=== PATIENT | female | born 1985 | race Caucasian/White ===

== ENCOUNTER 2016-08-31 11:25 | Emergency (ER) | payer OTHER ==
--- NOTE | 2016-08-31 13:47 | ED NURSING NOTES ---
Clinical Report - Nurses [facility] [address] [place] [address] 08/31/2016 11:28 Patient: SALTY SNEED TRIAGE Triage time 1140. Acuity: LEVEL 5. Chief Complaint: INJURY TO LEFT HAND. Alert. No acute distress. --11:45 Merna Arreola R.N. 11:39 08/31/16. BP: 141/80 (regular adult cuff) taken on the right arm, via an automated monitor, while sitting. HR: 79. RR: 16. O2 saturation: 100%. Temp: 97.8 F (oral). Pain level now: 05/26. --11:45 Merna Arreola R.N. Weight: 56.6 kg stated. Height/Length: 61 inches Per Patient. BMI: 23.6. --11:39 Merna Arreola R.N. Medications Vitamins Oral. --11:44 Merna Arreola R.N. Advair HFA Inhalation. --11:45 Merna Arreola R.N. Allergies Dilaudid. --15:25 Yasmeen Mccollum R.N. Medication/allergy information source: the patient. --11:45 Merna Arreola R.N. History Arrived by private vehicle. Historian: patient. Accompanied by family. Primary physician (Roly). ( Pt states was outside cutting wood with a hatchet and cut her left index finger, pt did run it under water x2 and wrapped it with cling and gauze. Here for further evaluation.). This occurred just prior to arrival. She sustained a laceration from a sharp edge (Hatchet while cutting wood for a fire). No neck pain. 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 PAST MEDICAL HX: Tetanus status: up-to-date. Immunizations: up-to-date. Sexual history - sexually active. No contraception. SOCIAL HX: Never smoker. Occasional alcohol use. No drug use. ABUSE ASSESSMENT: No report of abuse. SELF HARM ASSESSMENT: A self harm assessment was performed. The patient answered "no" to the question "Do you have thoughts of harming or killing yourself?" and "Have you recently had thoughts about harming or killing others?". FALL RISK ASSESSMENT: Fall risk assessment completed. No fall risk identified. NUTRITIONAL RISK ASSESSMENT: The nutritional risk assessment revealed no deficiencies. FUNCTIONAL ASSESSMENT: Functional assessment: no impairments noted. LEARNING NEEDS ASSESSMENT: The learning needs assessment revealed no barriers. SKIN INTEGRITY ASSESSMENT: Skin integrity risk assessment completed. No skin integrity risk identified. --:45 Merna Arreola R.N. PROBLEMS: Asthma. Lumbar Strain. Myofascial Strain. Tetanus Status. Immunizations. Mood Disorder. Bronchitis. --:45 Merna Arreola R.N. ADDITIONAL SURGERIES: Appendectomy. . --:45 Merna Arreola R.N. Interventions ID band on patient. --11:45 Merna Arreola R.N. PHYSICAL ASSESSMENT Ambulatory to room. GENERAL / NEURO / PSYCH: Oriented X 4. Alert. EXTREMITIES: Capillary refill is less than 2 seconds in the extremities. Extremity pulses are within normal limits. Extremities exhibit normal ROM. Neuro-vascular status intact to the extremity. Left hand: tenderness, erythema, small and deep abrasion and 1.0 cm laceration with controlled bleeding (index finger). No foreign body or deformity. SKIN: Skin intact. Skin is warm and dry. --11:46 Merna Arreola R.N. NURSING PROGRESS NOTES The initial plan of care for this patient has been created This plan of care was discussed with the patient. Reassurance given. Two patient identifiers checked. Call light placed in reach. Side rails up x 1. Bed placed in lowest position. Brakes of bed on. --11:46 Merna Arreola R.N. 12:03 08/31/16. Wound irrigated with 500 mL sterile NS using a high-pressure irrigation system; patient tolerated procedure well. --12:03 Ubaldo Pablo 14:00. WOUND REPAIR: Wound repair performed by ENE. Assisted by one nurse. The wound is linear. Preparation: suture tray set-up with lidocaine. Wound cleansed per physician and irrigated per physician using a syringe. Procedure: wound repaired with sutures. Post-procedure: she was stable, bleeding controlled and dressing applied. Total time of assist / procedure: 15 minutes. Applied clean dressing consisting of adaptic, following the application of antibiotic ointment. Secured with tube gauze. --15:24 Yasmeen Mccollum R.N. DISPOSITION / DISCHARGE 14:15. Condition at departure: improved and stable. No learning barriers present. Discharge instructions provided and reviewed with the patient. Reviewed wound care instructions. Patient and speech pathology assistant verbalized understanding. Written instructions provided in Sami. The patient was discharged home. She left the Emergency Department ambulatory and via private vehicle. --15:22 Yasmeen Mccollum R.N. 14:15 08/31/16. BP: 128/78. HR: 72. RR: 18. O2 saturation: 100%. Temp: deferred. Pain level now: 0/10. --15:22 Yasmeen Mccollum R.N. Locked/Released at 08/31/2016 15:25 by Yasmeen Mccollum R.N.
--- NOTE | 2016-08-31 13:47 | ED NURSING NOTES ---
Clinical Report - Nurses [facility] [address] [place] [address] 08/31/2016 11:28 Patient: SALTY SNEED TRIAGE Triage time 1140. Acuity: LEVEL 5. Chief Complaint: INJURY TO LEFT HAND. Alert. No acute distress. --11:45 Merna Arreola R.N. 11:39 08/31/16. BP: 141/80 (regular adult cuff) taken on the right arm, via an automated monitor, while sitting. HR: 79. RR: 16. O2 saturation: 100%. Temp: 97.8 F (oral). Pain level now: 05/26. --11:45 Merna Arreola R.N. Weight: 56.6 kg stated. Height/Length: 61 inches Per Patient. BMI: 23.6. --11:39 Merna Arreola R.N. Medications Vitamins Oral. --11:44 Merna Arreola R.N. Advair HFA Inhalation. --11:45 Merna Arreola R.N. Allergies Dilaudid. --15:25 Yasmeen Mccollum R.N. Medication/allergy information source: the patient. --11:45 Merna Arreola R.N. History Arrived by private vehicle. Historian: patient. Accompanied by family. Primary physician (Roly). ( Pt states was outside cutting wood with a hatchet and cut her left index finger, pt did run it under water x2 and wrapped it with cling and gauze. Here for further evaluation.). This occurred just prior to arrival. She sustained a laceration from a sharp edge (Hatchet while cutting wood for a fire). No neck pain. 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 PAST MEDICAL HX: Tetanus status: up-to-date. Immunizations: up-to-date. Sexual history - sexually active. No contraception. SOCIAL HX: Never smoker. Occasional alcohol use. No drug use. ABUSE ASSESSMENT: No report of abuse. SELF HARM ASSESSMENT: A self harm assessment was performed. The patient answered "no" to the question "Do you have thoughts of harming or killing yourself?" and "Have you recently had thoughts about harming or killing others?". FALL RISK ASSESSMENT: Fall risk assessment completed. No fall risk identified. NUTRITIONAL RISK ASSESSMENT: The nutritional risk assessment revealed no deficiencies. FUNCTIONAL ASSESSMENT: Functional assessment: no impairments noted. LEARNING NEEDS ASSESSMENT: The learning needs assessment revealed no barriers. SKIN INTEGRITY ASSESSMENT: Skin integrity risk assessment completed. No skin integrity risk identified. --:45 Merna Arreola R.N. PROBLEMS: Asthma. Lumbar Strain. Myofascial Strain. Tetanus Status. Immunizations. Mood Disorder. Bronchitis. --:45 Merna Arreola R.N. ADDITIONAL SURGERIES: Appendectomy. . --:45 Merna Arreola R.N. Interventions ID band on patient. --11:45 Merna Arreola R.N. PHYSICAL ASSESSMENT Ambulatory to room. GENERAL / NEURO / PSYCH: Oriented X 4. Alert. EXTREMITIES: Capillary refill is less than 2 seconds in the extremities. Extremity pulses are within normal limits. Extremities exhibit normal ROM. Neuro-vascular status intact to the extremity. Left hand: tenderness, erythema, small and deep abrasion and 1.0 cm laceration with controlled bleeding (index finger). No foreign body or deformity. SKIN: Skin intact. Skin is warm and dry. --11:46 Merna Arreola R.N. NURSING PROGRESS NOTES The initial plan of care for this patient has been created This plan of care was discussed with the patient. Reassurance given. Two patient identifiers checked. Call light placed in reach. Side rails up x 1. Bed placed in lowest position. Brakes of bed on. --11:46 Merna Arreola R.N. 12:03 08/31/16. Wound irrigated with 500 mL sterile NS using a high-pressure irrigation system; patient tolerated procedure well. --12:03 Ubaldo Pablo 14:00. WOUND REPAIR: Wound repair performed by ENE. Assisted by one nurse. The wound is linear. Preparation: suture tray set-up with lidocaine. Wound cleansed per physician and irrigated per physician using a syringe. Procedure: wound repaired with sutures. Post-procedure: she was stable, bleeding controlled and dressing applied. Total time of assist / procedure: 15 minutes. Applied clean dressing consisting of adaptic, following the application of antibiotic ointment. Secured with tube gauze. --15:24 Yasmeen Mccollum R.N. DISPOSITION / DISCHARGE 14:15. Condition at departure: improved and stable. No learning barriers present. Discharge instructions provided and reviewed with the patient. Reviewed wound care instructions. Patient and fisher lampara net verbalized understanding. Written instructions provided in Upper Sorbian. The patient was discharged home. She left the Emergency Department ambulatory and via private vehicle. --15:22 Yasmeen Mccollum R.N. 14:15 08/31/16. BP: 128/78. HR: 72. RR: 18. O2 saturation: 100%. Temp: deferred. Pain level now: 0/10. --15:22 Yasmeen Mccollum R.N. Locked/Released at 08/31/2016 15:25 by Yasmeen Mccollum R.N.
--- NOTE | 2016-08-31 13:47 | ED ORDER SUMMARY ---
..... Patient: SALTY SNEED OrderSheet [facility] VisitID: [id number] [address] [place] [address] 30y, F Registration Date/Time: 08/31/2016 ORDER SHEET Weight: 56.6 kg (stated) Allergies: Dilaudid GENERAL ORDERS: Dress Wounds (tube gauze) (13:43 08/31/2016 Troy A.R.N.P.) (14:06 Nicolás R.N.) MEDICATION ORDERS: IV FLUIDS: ORDER SHEET NOTES: [Electronically signed by Yasmeen Mccollum R.N. (15:25 08/31/2016)] [Electronically signed by Danica DaltonR.N.PVinh (15:57 08/31/2016)] [Electronically locked/signed by Yasmeen Mccollum R.N. (15:25 08/31/2016)]
--- NOTE | 2016-08-31 13:47 | ED CLINICAL REPORT ---
Clinical Report - Physicians/Mid Levels [facility] [address] [place] [address] 08/31/2016 11:28 Patient: SALTY SNEED Time Seen: 12:10; initial patient contact. Arrived- By private vehicle. Historian- patient. HISTORY OF PRESENT ILLNESS Chief Complaint: Chief Complaint- L index finger. The injury happened just prior to arrival. The patient sustained a laceration from a sharp edge (cutting wood and got finger with the hatchet). Occurred at home. Patient is experiencing moderate pain. Patient denies injury to the head or neck. No other injury. REVIEW OF SYSTEMS The patient sustained a laceration. No swelling, tingling, numbness, weakness or suspected foreign body. All systems otherwise negative, except as recorded above. PAST HISTORY See nurses notes. PROBLEMS: Asthma. Lumbar Strain. Myofascial Strain. Tetanus Status. Immunizations. Mood Disorder. Bronchitis. --11:45 Merna Arreola R.N. ADDITIONAL SURGERIES: Appendectomy. . --11:45 Merna Arreola RVinhN. The patient's dominant hand is the right. Tetanus immunization status is up-to-date. SOCIAL HISTORY Never smoker. Occasional alcohol use. No drug use. No recent travel. Is a local resident. FAMILY HISTORY No significant family medical history. ADDITIONAL NOTES The nursing notes have been reviewed with agreement regarding the chief complaint, HPI, ROS, PMH and patient medications and allergies. PHYSICAL EXAM Vital Signs: 08/31/2016 11:39 BP: 141/80. HR: 79. RR: 16. O2 saturation: 100%. Temp: 97.8 F. Pain level now: 310. Have been reviewed as normal and appear to be correct. Appearance: Alert. Oriented X3. No acute distress. Head: Head atraumatic. Eyes: Pupils equal, round and reactive to light. Eyes normal inspection. Respiratory: No respiratory distress. Skin: Skin intact. Skin warm and dry. Normal skin color. Normal skin turgor. Extremities: Left index finger: subcutaneous 1.0 cm laceration of the volar aspect and middle phalanx- SEE LACERATION PROCEDURE NOTE #1. Neurovascular intact distally. No erythema, tenderness, swelling, abrasion or ecchymosis. No puncture wound, foreign body or deformity. No limitation in movement. No subungual hematoma or amputation present. Upper extremity otherwise negative. Extremities otherwise negative. Neuro, Vascular and Tendons: Vascular status intact. Sensation intact. Motor intact. Tendon function intact. Neuro: Oriented X 3. No motor deficit. No sensory deficit. Note: isolated injury to finger. PROGRESS AND PROCEDURES Digital Nerve Block - Finger: Per protocol, time-out completed immediately before the procedure. Digital nerve block performed on the left index finger. Volar approach utilized. Landmarks identified. Skin prepped. Total volume of 5 mL 1% Lidocaine and 0.5% Marcaine infiltrated via a single puncture using a 27-gauge needle. Patient cooperative during procedure. No complications encountered. Excellent anesthesia achieved. Laceration Repair: Location: left index finger. Length: 1 cm. Complexity: simple (local anesthesia used). Wound depth/shape- curved, subcutaneous and linear and involving fascia. Wound is clean. No contamination, foreign body or contused tissue present. No tissue loss. Distal neuro/vascular/tendon status normal. Tendon not examined. No tendon deficit or laceration or tendon injury. Anesthesia provided (digital block by Dr Linder). Prepped with Betadine. Wound explored, cleansed, irrigated and examined to the base in bloodless field with normal saline. Closure of skin: interrupted 4-0 nylon (2 sutures). Post-procedure: she is stable and there are no complications. Bleeding is controlled and neuro-vascular status is intact distal to the wound. Dressing applied. (see other notes). Tetanus immunization up-to-date. Estimated blood loss: 5 mL. Course of Care: 13:30 08/31/16. Assuming care, report given by Dr Linder, initial exam and digital block. Patient counseled in person regarding the patient's stable condition and diagnosis. Differential Diagnosis: Other possible considerations: lac, fb, skin avulsion, tendon injury. Above considerations are based on history, physical exam and reassessment. Differential diagnosis was discussed with patient. Disposition: Discharged home in good and improved condition (13:47). Condition: good and stable. CLINICAL IMPRESSION Single deep laceration to the left index finger.Treatment of laceration not delayed. No infection, foreign body present or left fingernail injury. INSTRUCTIONS Protect wound and keep wound area clean. Change dressing twice daily. Soak in warm soapy water twice daily. Apply neosporin twice daily. Sutures should be removed in twelve days. Warnings: GENERAL WARNINGS: Return or contact your physician immediately if your condition worsens or changes unexpectedly, if not improving as expected, or if other problems arise. Specifically return if problem worsens. Follow-up: Follow up with your doctor in about ten days for suture removal and wound check. Call for an appointment. Summary of care provided to patient. Understanding of the discharge instructions verbalized by patient. (Electronically signed by Danica Dalton A.R.N.P. 08/31/2016 15:57)
--- NOTE | 2016-08-31 13:47 | ED ORDER SUMMARY ---
..... Patient: SALTY SNEED OrderSheet [facility] VisitID: [id number] [address] [place] [address] 30y, F Registration Date/Time: 08/31/2016 ORDER SHEET Weight: 56.6 kg (stated) Allergies: Dilaudid GENERAL ORDERS: Dress Wounds (tube gauze) (13:43 08/31/2016 Troy A.R.N.P.) (14:06 Nicolás R.N.) MEDICATION ORDERS: IV FLUIDS: ORDER SHEET NOTES: [Electronically signed by Yasmeen Mccollum R.N. (15:25 08/31/2016)] [Electronically signed by Danica DaltonR.N.PVinh (15:57 08/31/2016)] [Electronically locked/signed by Yasmeen Mccollum R.N. (15:25 08/31/2016)]
--- NOTE | 2016-08-31 15:57 | ED MED RECONCILIATION SUMMARY ---
Patient: SALTY SNEED Medication Reconciliation Report [facility] VisitID: [id number] [address] [place] [address] 30y, F Registration Date/Time: 08/31/2016 Weight: 56.6 kg Height/Length: 61 in. BMI: 23.6 ALLERGIES: Dilaudid The patient's Home Medications are listed below: THE FOLLOWING MEDICATIONS NEED TO BE RECONCILED: Advair HFA Inhalation Vitamins Oral The source(s) of the original Home Medication information: patient The following Medications were given to the patient in the Emergency Department: None. The following Medications were prescribed to the patient: None.
--- NOTE | 2016-08-31 15:57 | ED MED RECONCILIATION SUMMARY ---
Patient: SALTY SNEED Medication Reconciliation Report [facility] VisitID: [id number] [address] [place] [address] 30y, F Registration Date/Time: 08/31/2016 Weight: 56.6 kg Height/Length: 61 in. BMI: 23.6 ALLERGIES: Dilaudid The patient's Home Medications are listed below: THE FOLLOWING MEDICATIONS NEED TO BE RECONCILED: Advair HFA Inhalation Vitamins Oral The source(s) of the original Home Medication information: patient The following Medications were given to the patient in the Emergency Department: None. The following Medications were prescribed to the patient: None.
--- NOTE | 2016-08-31 15:57 | ED DISCHARGE INSTRUCTIONS ---
Patient: SALTY SNEED General Instructions [facility] VisitID: [id number] [place] [address] 30y, F Registration Date/Time: 08/31/2016 Single deep laceration to the left index finger.Treatment of laceration not delayed. No infection, foreign body present or left fingernail injury. INSTRUCTIONS Protect wound and keep wound area clean. Change dressing twice daily. Soak in warm soapy water twice daily. Apply neosporin twice daily. Sutures should be removed in twelve days. Warnings: GENERAL WARNINGS: Return or contact your physician immediately if your condition worsens or changes unexpectedly, if not improving as expected, or if other problems arise. Specifically return if problem worsens. Follow-up: Follow up with your doctor in about ten days for suture removal and wound check. Call for an appointment. Summary of care provided to patient. Understanding of the discharge instructions verbalized by patient. ADDITIONAL INFORMATION Laceration (All Closures) Alaceration is a cut through the skin. This will usually require stitches (sutures) or obed if it is deep. Minor cuts may be treated with a surgical tape closure orskin glue. Home care The following guidelines will help you care for your laceration at home: Extremity, face, or trunk wounds Keep the wound clean and dry. If a bandage was applied and it becomes wet or dirty, replace it. Otherwise, leave it in place for the first 24 hours. If stitches or obed were used, clean the wound daily. After removing the bandage, wash the area with soap and water. Use a wet cotton swab to loosen and remove any blood or crust that forms. The doctor may prescribe an antibiotic cream or ointment to prevent infection. Do not stop taking this medication until you have finished the prescribed course or the doctor tells you to stop. The doctor may also prescribe medications for pain. Follow the doctors instructions for taking these medications. You may remove the bandage to shower as usual after the first 24 hours, but do not soak the area in water (no swimming) until the stitches or obed are removed. If surgical tape was used, keep the area clean and dry. If it becomes wet, blot it dry with a towel. If skin glue was used, do not scratch, rub, or pick at the adhesive film. Do not place tape directly over the film. Do not apply liquid, ointment, or creams to the wound while the film is in place. Do not clean the wound with peroxide and do not apply ointments. Avoid activities that cause heavy sweating until the film has fallen off. Protect the wound from prolonged exposure to sunlight or tanning lamps. You may shower as usual but do not soak the wound in water (no baths or swimming). The film will fall off by itself in 510 days. Scalp wounds During the first two days, you may carefully rinse your hair in the shower to remove blood, glass or dirt particles. After two days, you may shower and shampoo your hair normally. Do not soak your scalp in the tub or go swimming until the stitches or obed have been removed. Talk with your doctor before applying any antibiotic ointment to the wound. Mouth wounds Eat soft foods to reduce pain. If the cut is inside of your mouth, clean by rinsing after each meal and at bedtime with a mixture of equal parts water and hydrogen peroxide (do not swallow!). Or, you can use a cotton swab to directly apply hydrogen peroxide onto the cut. Mouth wounds can be painful when eating. You may use an [id number]-hrxaedo local numbing solution for pain relief. If this is not available, you may use any numbing solution for teething babies. You may apply this directly to the sores with a cotton-tip swab or with your finger. Follow-up care Follow up with your health care provider. Most skin wounds heal within ten days. Mouth and facial wounds heal within five days. However, even with proper treatment, a wound infection may sometimes occur. Therefore, you should check the wound daily for signs of infection listed below. Stitches should be removed from the face within five days; stitches and obed should be removed from other parts of the body within 714 days. If dissolving stitches were used in the mouth, these will fall out or dissolve without the need for removal. If tape closures were used, remove them yourself if they have not fallen off after 7 days. Ifskin glue was used, the film will fall off by itself in 510 days. When to seek medical care Get prompt medical attention if any of these occur: Bleeding not controlled by direct pressure Signs of infection, including increasing pain in the wound, increasing wound redness or swelling, or pus coming from the wound Fever of 100.4F (38C) or higher, or as directed by your health care provider Stitches or obed come apart or fall out or surgical tape falls off before 7 days Wound edges re-open Laceration, Extremity (Sutures, Obed, Or Tape) A laceration is a cut through the skin. This will usually require stitches (sutures) or obed if it is deep. Minor cuts may be treated with surgical tape closures. Home care The following guidelines will help you care for your laceration at home: Keep the wound clean and dry. If a bandage was applied and it becomes wet or dirty, replace it. Otherwise, leave it in place for the first 24 hours, then change it once a day or as directed. If stitches or obed were used, clean the wound daily: After removing the bandage, wash the area with soap and water. Use a wet cotton swab to loosen and remove any blood or crust that forms. After cleaning, keep the wound clean and dry. Talk with your doctor before applying any antibiotic ointment to the wound. Reapply the bandage. You may remove the bandage to shower as usual after the first 24 hours, but do not soak the area in water (no swimming) until the stitches or obed are removed. If surgical tape closures were used, keep the area clean and dry. If it becomes wet, blot it dry with a towel. The doctor may prescribe an antibiotic cream or ointment to prevent infection. Do not stop taking this medication until you have finished the prescribed course or the doctor tells you to stop. The doctor may also prescribe medications for pain. Follow the doctors instructions for taking these medications. If you have chronic liver or kidney disease or ever had a stomach ulcer or GI bleeding, talk with your doctor before using these medicines. Follow-up care Follow up with your health care provider. Most skin wounds heal within ten days. However, an infection may sometimes occur despite proper treatment. Therefore, check the wound daily for the signs of infection listed below. Stitches and obed should be removed within 714 days. If surgical tape closures were used, you may remove them after 10 days, if they have not fallen off by then. Notify your doctor if you notice persistent numbness or weakness in the injured extremity. (Note:A radiologist will review any X-rays that were taken. We will notify you of any new findings that may affect your care.) When to seek medical care Get prompt medical attention if any of these occur: Increasing pain in the wound Redness, swelling, or pus coming from the wound Fever of 100.4F (38C) or higher, or as directed by your health care provider If stitches or obed come apart or fall out before your next appointment If the surgical tape closures fall off within seven days, or the wound edges re-open Bleeding not controlled by direct pressure You have been given the following additional information: Laceration, All Laceration, Extrem (Suture, Staple, Or Tape) (Electronically signed by Danica Dalton A.R.N.P. 08/31/2016 15:57)
--- NOTE | 2016-08-31 15:57 | ED MAR SUMMARY ---
..... Medication Administration Record [facility] [address] [place], [place] [id number] Patient: SALTY SNEED Visit ID: [id number] 30y, F Weight: 56.6 kg Height/Length: 61 in BMI: 23.6 ALLERGIES: Dilaudid
--- NOTE | 2016-08-31 15:57 | ED MAR SUMMARY ---
..... Medication Administration Record [facility] [address] [place], [place] [id number] Patient: SALTY SNEED Visit ID: [id number] 30y, F Weight: 56.6 kg Height/Length: 61 in BMI: 23.6 ALLERGIES: Dilaudid
== END 2016-08-31 14:18 | disposition home or self-care (01) ==
LOC: ED SRH 11:25
DX: S61.211A Laceration without foreign body of left index finger without damage to nail, initial encounter (principal); W26.8XXA Contact with other sharp object(s), not elsewhere classified, initial encounter; Y93.89 Activity, other specified; Y99.9 Unspecified external cause status; Y92.009 Unspecified place in unspecified non-institutional (private) residence as the place of occurrence of the external cause